=== PATIENT | male | born 1960 | race Caucasian/White ===

== ENCOUNTER → 2018-04-20 18:46 | Outpatient (CLI) | payer OTHER, SELFPAY ==
--- NOTE | 2018-04-20 18:49 | DI.MRI.S_ITS ---
PROCEDURE: MR KNEE RT WO CON INDICATIONS: RIGHT KNEE PAIN TECHNIQUE: Noncontrast sagittal PD fast spin echo and T2 fast spin echo with fat saturation, sagittal 3-D FLASH with fat saturation; coronal T1 spin echo and PD fast spin echo with fat saturation, and axial PD fast spin echo with fat saturation through the knee. COMPARISON: None. FINDINGS: Image quality: Excellent. Menisci: The medial and lateral menisci demonstrate normal morphology and internal signal. The meniscal root ligaments appear intact. Cruciate ligaments: The anterior and posterior cruciate ligaments appear intact. Medial structures: The medial collateral ligament appears intact. The posterior oblique ligament, semimembranosus tendon insertions, oblique popliteal ligament, and meniscocapsular junction appear intact. Visualized portions of the pes anserinus tendons appear normal. No abnormal bursal fluid. Lateral structures: The lateral collateral ligament, long and short heads of the biceps femoris tendon appear intact. The popliteus tendon appears normal; the popliteofibular ligament appears intact. The posterosuperior and anteroinferior popliteomeniscal fascicles appear intact. The arcuate and fabellofibular ligaments appear intact, on either side of the lateral inferior geniculate artery. Iliotibial band appears normal. Anterior structures: The quadriceps and patellar tendons appear intact. Patellar alignment is normal. No femoral trochlear dysplasia or ventral trochlear prominence. No edema in the infrapatellar fat pad. Bones and cartilage: No bone marrow contusions or fractures. The cartilage of the medial and lateral femorotibial compartments, as well as the patellofemoral compartment, appears reduced in thickness, mild in severity at the lateral compartment and medial compartment and moderately severe at the lateral facet of the patellofemoral joint. Joint space: There is a mild excess of knee joint fluid. No Schafer's cyst. Normal appearing synovial plicae are incidentally noted. IMPRESSION: Moderately severe degenerative osteoarthritic change at the lateral facet of the patellofemoral joint, with associated mild knee joint effusion. No intra-articular loose body is seen. No traumatic injury is found. Mild degenerative osteoarthritis at both the medial and lateral compartments of the knee. Dictated by: Andrew Cardona M.D. on 04/21/2018 at 13:50 Approved by: Andrew Cardona M.D. on 04/21/2018 at 13:53
== END ==
PROVIDERS: Family Provider Internal Medicine; PCP Internal Medicine; Visit Provider Physician Assistant
DX: M25.561 Pain in right knee (principal); M17.11 Unilateral primary osteoarthritis, right knee
CPT/HCPCS: 73721

== ENCOUNTER → 2018-11-12 13:46 | Outpatient (CLI) | payer OTHER, SELFPAY | PROVIDERS: Family Provider Internal Medicine; PCP Internal Medicine; Visit Provider Internal Medicine | DX: Z00.00 Encounter for general adult medical examination without abnormal findings (principal) ==

== ENCOUNTER → 2018-11-13 07:35 | Outpatient (CLI) | payer OTHER, SELFPAY ==
[2018-11-13 09:06] LABS: Cholesterol 240 mg/dL (140-199); Glucose 95 mg/dL (80-110); HDL Cholesterol 55 mg/dL (40-60); LDL Cholesterol Calculated 157 mg/dL (<100); Triglycerides 138 mg/dL (35-150)
== END ==
PROVIDERS: Family Provider Internal Medicine; PCP Internal Medicine; Visit Provider Internal Medicine
DX: Z00.00 Encounter for general adult medical examination without abnormal findings (principal)
CPT/HCPCS: 36415; 80061; 82947; 84153

== ENCOUNTER → 2021-03-22 14:48 | Outpatient (ROUT) | payer OTHER, SELFPAY ==
[2021-03-22 17:12] LABS: Aspartate Aminotransferase 51 IU/L (17-59); BUN Creatinine Ratio 15.7 (6-22); Blood Urea Nitrogen 13 mg/dL (9-20); Calcium 9.9 mg/dL (8.4-10.2); Carbon Dioxide 25 mmol/L (22-32); Chloride 104 mmol/L (98-107); Cholesterol 236 mg/dL (140-199); Estimated Glomerular Filt Rate > 60.0 mL/min (>60); Glucose 102 mg/dL (80-110); HDL Cholesterol 68 mg/dL (40-60); HEMOLYSIS 20 (0-50); LDL Cholesterol Calculated 149 mg/dL (<100); Potassium 4.6 mmol/L (3.4-5.1); Sodium 139 mmol/L (137-145); Triglycerides 93 mg/dL (35-150)
[2021-03-22 18:04] LABS: Prostate Specific Antigen 1.93 ng/mL (0.10-4.00)
== END ==
PROVIDERS: Family Provider Internal Medicine; PCP Internal Medicine; Visit Provider Internal Medicine
DX: E78.2 Mixed hyperlipidemia (principal); Z00.00 Encounter for general adult medical examination without abnormal findings
CPT/HCPCS: 80048; 80061; 84153; 84450

== ENCOUNTER → 2021-03-26 09:39 | Outpatient (CLI) | payer OTHER, SELFPAY ==
[2021-03-26 11:14] LABS: COVID19 -Nasal RAPID Negative (Negative)
== END ==
PROVIDERS: PCP Internal Medicine; Visit Provider Student in an Organized Health Care Education/Training Program
DX: Z01.812 Encounter for preprocedural laboratory examination (principal); Z20.822 Contact with and (suspected) exposure to COVID-19
CPT/HCPCS: 87635

== ENCOUNTER 2021-03-28 07:33 | Day surgery (SDC) | payer OTHER, SELFPAY ==
--- NOTE | 2021-03-28 | PATH_ITS ---
[facility] Accession Number: [id number] . 01 Material submitted: . PART A: stomach - STOMACH BIOPSY PART B: duodenum - DUODENAL POLYP PART C: colon - TRANSVERSE COLON POLYP PART D: colon - DESCENDING COLON POLYP PART E: rectum - RECTAL POLYP . 01 Clinical history: . A: STOMACH BIOPSY (RULE OUT MALT) . 02 Diagnosis: A. Stomach, Biopsies: Chronic gastritis with pseudopyloric metaplasia, parietal cell atrophy and prominent lamina propria infiltrate comprised of lymphocytes, plasma cells and eosinophils. Please see comment. Negative for epithelial dysplasia. . B. Duodenum, Polyp, Biopsy: Duodenal mucosa with no diagnostic abnormality. Negative for active inflammation, features of sprue, dysplasia, or malignancy. . C. Transverse Colon, Polyp, Biopsy: Tubular adenoma. . D. Descending Colon, Polyp, Biopsy: Hyperplastic polyp. . E. Rectum, Polyp, Biopsy: Hyperplastic polyp. [facility] 04/04/2021 1530 Local . 02 Comment: A. Multiple stomach biopsies show gastric mucosa with expansion of the lamina propria by an apparent mixed infiltrate of lymphocytes, plasma cells and eosinophils. There is pseudopyloric metaplasia and parietal cell atrophy. No intestinal metaplasia is identified and the immunohistochemical stain for Helicobacter is negative. Scattered glandular elements contain intraepithelial lymphocytes, suggestive of lymphoepithelial lesions. 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 The clinical concern for lymphoma is noted. This case will be forwarded to our hepatopathologist for consultation and their results reported as an addendum. . 02 Electronically signed: . Hannah Urbina MD, Pathologist NPI- [id number] . 01 Gross description: . A. Specimen A is received in formalin labeled stomach and consists of multiple soto-pink fragments of soft tissue, measuring 1.0 x 1.0 x 0.2 cm in aggregate. The specimen is entirely submitted in cassette A1. B. Specimen B is received in formalin labeled duodenal polyp and consists of two soto-pink fragments of soft tissue, measuring 0.5 x 0.4 x 0.2 cm in aggregate. The specimen is entirely submitted in cassette B1. C. Specimen C is received in formalin labeled transverse colon polyp and consists of a 0.8 x 0.4 x 0.2 cm soto fragment of soft tissue, which is entirely submitted in cassette C1. D. Specimen D is received in formalin labeled descending colon polyp and consists of a 0.3 x 0.3 x 0.2 cm soto-pink fragment of soft tissue, which is entirely submitted in cassette D1. E. Specimen E is received in formalin labeled rectal polyp and consists of a 0.3 x 0.2 x 0.2 cm soto-pink fragment of soft tissue, which is entirely submitted in cassette E1. ([id number]) /[facility] 03/29/2021 1617 Local . 02 Microscopic: . A. An immunohistochemical stain was performed to evaluate for Helicobacter organisms and is negative. An alcian blue stain was performed to evaluate for intestinal metaplasia and is negative. The control stains showed appropriate reactivity. . * This test was developed and its performance characteristics determined by [employer]. It has not been cleared or approved by the U.S. Food and Drug Administration. The FDA has determined that such clearance or approval is not necessary. This test is used for clinical purposes. It should not be regarded as investigational or for research. . 02 Pathologist provided ICD-10: Z12.11, D12.3, K63.5 . 02 CPT . 237389, 779745, 050595, 766828, 867201, 625385, M71056 Performed at: 01 [facility] [address], [place], [place] [id number] MD Prosper Bowman MD Phone: [phone] Performed at: 02 [facility] [id number] [place], [place] [id number] MD Hannah Urbina MD Phone: [phone]
[2021-03-28 07:55] VITALS: BP 172/87; PULSE 59; RESP 14; TEMP 36.8; O2SAT 100; BMI 38.1
--- NOTE | 2021-03-28 08:38 | PM.HP.1 ---
History of Present Illness History of Present Illness Date Patient Seen: 03/28/21 Chief complaint: IAC Patient History Medical History (Updated 03/22/20 @ 13:02 by Yordy Rendon MD) Asthma Depression GERD (gastroesophageal reflux disease) Morbid obesity with body mass index of 40.0-49.9 Obstructive sleep apnea of adult (~2011) Osteoarthritis Seasonal allergies Snoring Family & Social History Social History: household members spouse lives independently Yes caregiver/support person No Tobacco & Substance use: Smoking Status Never smoker alcohol intake current alcohol intake frequency 0-2 drinks per day Substance Use Type does not use Meds Home Medications and Allergies Home Medications Medication Instructions Recorded Confirmed Type Respironics Remstar CPAP #1 ea 03/25/19 03/25/19 History albuterol sulfate 2 puff INHALATION Q4H PRN 03/28/21 03/28/21 History esomeprazole magnesium 20 mg PO DAILY PRN 03/28/21 03/28/21 History montelukast 10 mg PO DAILY 03/28/21 03/28/21 History sertraline 50 mg PO DAILY 03/28/21 03/28/21 History Allergies Allergy/AdvReac Type Severity Reaction Status Date / Time No Known Drug Allergies Allergy Verified 03/28/21 07:52 Exam Vital Signs (past 8 hours): - 03/28/21 07:55 Temperature 98.3 F Pulse Rate 59 L Respiratory Rate 14 Blood Pressure 172/87 H Pulse Oximetry 100 Oxygen Delivery Method Room Air Assessment & Plan Assessment & Plan narrative: Colorectal cancer screening need for colonoscopy. In addition need follow-up EGD to rule out Purdy's esophagus. Risks, benefits, alternatives have been explained.
--- NOTE | 2021-03-28 08:40 | PM.OP.ENDO ---
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 The video colonoscope was introduced the rectum slowly advanced to the cecum. Preparation was good. On slow withdrawal mucosa was carefully examined. The scope was removed. The patient tolerated procedure well. The patient was then turned in the upper scope substituted. This was introduced into the oropharynx and with the patient's help swallowed into the esophagus. The esophagus stomach and duodenum were carefully examined. On withdrawal retroflexed view the GE junction was performed. The scope was removed. The patient tolerated procedure well. Blood loss none Complications none Sedation Total sedation time 31 minutes Versed 11 mg fentanyl 100 micro g IV titration Findings EGD 1. Normal esophagus with absolutely no salmon-colored tissue above the level of the gastric folds. 2. Whitish mottled change in the lining on the greater curvature of the stomach involving most of the greater curvature. This was easily 20 x 15 cm. Multiple biopsies taken to rule out an MALT 3. Normal duodenal bulb and sweep with the exception of a 15 mm soft polyp that had somewhat of a pillow up effective when biopsying. Colonoscopy 1. 5 mm polyp in the transverse colon Jumbo biopsy removed completely 2. 4 mm polyp in the descending colon Jumbo biopsy removed completely 3. 3 mm polyp in the rectum Jumbo biopsied and removed completely 4. Scattered rare diverticular disease in the sigmoid colon Otherwise negative colonoscopy to cecum Will follow-up on the biopsy results particularly from his colon. If these are all tubular adenomas he will need follow-up colonoscopy in 5 years.
[2021-03-28] MEDS: MIDAZOLAM 5 MG/5 ML VIAL IV ×3 (08:44→09:11)
[2021-03-28] MEDS: fentaNYL 250 MCG/5 ML INJ IV (08:45)
[2021-03-28 09:22] VITALS: BP 140/75; PULSE 57; RESP 12; TEMP 36.7; O2SAT 98
[2021-03-28 09:26] VITALS: BP 145/88; PULSE 63; RESP 16; O2SAT 95
[2021-03-28 09:32] VITALS: BP 145/81; PULSE 61; RESP 12; O2SAT 96
[2021-03-28 09:35] VITALS: BP 142/85; PULSE 62; RESP 14; TEMP 36.7; O2SAT 96
[2021-03-28 09:42] VITALS: BP 147/79; PULSE 58; RESP 16; O2SAT 97
== END 2021-03-28 09:50 | disposition home or self-care (01) ==
PROVIDERS: PCP Internal Medicine; Referring Provider Internal Medicine Gastroenterology; Visit Provider Internal Medicine Gastroenterology
PROC: 0DJ08ZZ Inspection of Upper Intestinal Tract, Via Natural or Artificial Opening Endoscopic (ICD-10-PCS; CPT 43235; principal; 2021-03-28 08:30)
PROC: 0DJD8ZZ Inspection of Lower Intestinal Tract, Via Natural or Artificial Opening Endoscopic (ICD-10-PCS; CPT 45378; 2021-03-28 08:30)
DX: Z12.11 Encounter for screening for malignant neoplasm of colon (principal); Z87.19 Personal history of other diseases of the digestive system; G47.33 Obstructive sleep apnea (adult) (pediatric); E66.01 Morbid (severe) obesity due to excess calories; F32.9 Major depressive disorder, single episode, unspecified; J45.909 Unspecified asthma, uncomplicated; K57.30 Diverticulosis of large intestine without perforation or abscess without bleeding; D12.3 Benign neoplasm of transverse colon; K62.1 Rectal polyp; K29.60 Other gastritis without bleeding
CPT/HCPCS: 45380; 43239; J2250; J3010

== ENCOUNTER → 2021-05-24 16:00 | Outpatient (CLI) | payer OTHER, SELFPAY ==
[2021-05-26 16:54] LABS: H. Pylori Antigen Stool Negative (Negative)
== END ==
PROVIDERS: PCP Internal Medicine; Referring Provider Internal Medicine Gastroenterology; Visit Provider Internal Medicine Gastroenterology
DX: C88.4 Extranodal marginal zone B-cell lymphoma of mucosa-associated lymphoid tissue [MALT-lymphoma] (principal)
CPT/HCPCS: 87338

== ENCOUNTER → 2021-06-25 09:28 | Outpatient (CLI) | payer OTHER, SELFPAY ==
[2021-06-25 10:06] LABS: COVID19 -Nasal RAPID Negative (Negative)
[2021-06-25 10:12] VITALS: BMI 40.2
--- NOTE | 2021-06-25 10:23 | SUR.PREOP ---
Reviewed pre-op questions in secluded space in waiting room while awaiting covid results.
[2021-06-25 10:35] VITALS: BP 167/82; PULSE 56; RESP 16; TEMP 36.8; O2SAT 97
[2021-06-25 12:15] VITALS: BP 136/77; PULSE 16; RESP 53; TEMP 36.6; O2SAT 99
--- NOTE | 2021-06-25 12:52 | SUR.PHASEII ---
1232 late entry Very pleasant patient, tolerated procedure well, denies pain/nausea. Fluids given upon arrival to OPD. Dressing CDI. Stable.
[2021-06-25 14:42] LABS: Add Manual Diff / Slide Review NO; Basophils Absolute Auto 100 /uL (0-100); Basophils Percent Auto 1.1 % (0-2); Eosinophils Absolute Auto 400 /uL (0-450); Eosinophils Percent Auto 5.3 % (2-4); Hematocrit 44.6 % (41-53); Hemoglobin 14.9 g/dL (13.5-17.5); Lymphocytes Absolute Auto 2400 /uL (1100-4500); Mean Corpuscular HGB Conc 33.4 % (30-36); Mean Corpuscular Hemoglobin 30.4 PG (26-34); Monocytes Absolute Auto 600 /uL (0-900); Monocytes Percent Auto 7.2 % (3-14); Neutrophils Absolute Auto 4700 /uL (1500-7000); Neutrophils Percent Auto 57.4 % (50-75); Platelet Count 249 X10^3/uL (150-400); Red Blood Cell Count 4.89 X10^6/uL (4.5-5.9); Red Cell Distribution Width 13.7 % (11.6-14.8); White Blood Cell Count 8.2 X10^3/uL (4.5-11.0)
== END ==
LOC: OR 12:19 → LAB 10-24 11:18
PROVIDERS: Anesthesiology; PCP Internal Medicine; Referring Provider Internal Medicine Hematology & Oncology; Visit Provider Internal Medicine Hematology & Oncology
DX: C88.4 Extranodal marginal zone B-cell lymphoma of mucosa-associated lymphoid tissue [MALT-lymphoma] (principal); Z20.822 Contact with and (suspected) exposure to COVID-19
CPT/HCPCS: 38222; 85025; 87635; 99000; J2250; J3010

== ENCOUNTER → 2021-08-24 14:44 | Outpatient (CLI) | payer OTHER, SELFPAY ==
--- NOTE | 2021-08-24 | DI.RAD.S_ITS ---
PROCEDURE: XR HIP W PEL IF DONE RT 2V INDICATIONS: Right Hip Pain TECHNIQUE: AP pelvis with lateral view(s) of the right hip(s). COMPARISON: [facility], , HIP 2V LEFT, 11/12/2010, 12:08. FINDINGS: Bones: No fractures or dislocations. Degenerative changes of the right hip with mild to moderate joint space loss and osteophytosis. Mild sclerosis of the opposing articular surfaces. Pelvic ring appears intact. A left hip arthroplasty is seen, partially imaged. No suspicious bony lesions. Soft tissues: The visualized bowel gas pattern is normal. No suspicious soft tissue calcifications. IMPRESSION: No acute osseous abnormality. Dictated by: Jasper Oh M.D. on 08/24/2021 at 16:17 Approved by: Jasper Oh M.D. on 08/24/2021 at 16:19
== END ==
PROVIDERS: PCP Internal Medicine; Referring Provider Internal Medicine; Visit Provider Internal Medicine
DX: M16.11 Unilateral primary osteoarthritis, right hip (principal)
CPT/HCPCS: 73502

== ENCOUNTER → 2021-12-06 16:28 | Outpatient (CLI) | payer OTHER, SELFPAY ==
--- NOTE | 2021-12-06 16:30 | DI.RAD.S_ITS ---
PROCEDURE: XR KNEE LT 3V INDICATIONS: bilateral knee and shoulder pain TECHNIQUE: 3 views of the knee were acquired. COMPARISON: None. FINDINGS: Bones: No fractures or dislocations. Ogoa-hf-aoybdhuw tricompartmental osteoarthritis. No suspicious bony lesions. Soft tissues: No joint effusion. No suspicious soft tissue calcifications. IMPRESSION: Ixwa-hb-ukxjbipz osteoarthritis. Dictated by: Ale Santa M.D. on 12/07/2021 at 9:22 Approved by: Ale Santa M.D. on 12/07/2021 at 9:26
--- NOTE | 2021-12-06 16:30 | DI.RAD.S_ITS ---
PROCEDURE: XR SHOULDER RT MIN 2V INDICATIONS: bilateral knee and shoulder pain TECHNIQUE: 3 views of the shoulder were acquired. COMPARISON: None. FINDINGS: Bones: No fractures or dislocations. No suspicious bony lesions. Severe acromioclavicular and moderate glenohumeral joint degeneration. Visualized ribs appear intact. Soft tissues: No suspicious soft tissue calcifications. IMPRESSION: Severe degenerative joint disease. Dictated by: Ale Santa M.D. on 12/07/2021 at 9:21 Approved by: Ale Santa M.D. on 12/07/2021 at 9:22
--- NOTE | 2021-12-06 16:30 | DI.RAD.S_ITS ---
PROCEDURE: XR SHOULDER LT MIN 2V INDICATIONS: bilateral knee and shoulder pain TECHNIQUE: 3 views of the shoulder were acquired. COMPARISON: None. FINDINGS: Bones: Moderate to severe acromioclavicular degenerative change. Mild to moderate glenohumeral degenerative changes. No fractures or dislocations. No suspicious bony lesions. Visualized ribs appear intact. Soft tissues: No suspicious soft tissue calcifications. IMPRESSION: Glenohumeral and acromioclavicular arthritis. Dictated by: Bridger Gill M.D. on 12/07/2021 at 8:29 Approved by: Bridger Gill M.D. on 12/07/2021 at 8:29
--- NOTE | 2021-12-06 16:30 | DI.RAD.S_ITS ---
PROCEDURE: XR KNEE RT 3V INDICATIONS: bilateral knee and shoulder pain TECHNIQUE: 3 views of the knee were acquired. COMPARISON: [facility], MR, MR KNEE RT WO CON, 04/20/2018, 18:52. [facility], CR, XR KNEE LT 3V, 12/06/2021, 17:47. FINDINGS: Bones: No fractures or dislocations. Seuvzqth-lh-cycnoa tricompartmental knee joint degeneration, most pronounced in the patellofemoral joint. There is mild lateral subluxation of patella. No suspicious bony lesions. Soft tissues: Trace joint effusion. No suspicious soft tissue calcifications. IMPRESSION: Moderate to severe osteoarthritis. Dictated by: Ale Santa M.D. on 12/07/2021 at 9:27 Approved by: Ale Santa M.D. on 12/07/2021 at 9:30
== END ==
PROVIDERS: PCP Family Medicine; Referring Provider Family Medicine; Visit Provider Family Medicine
DX: M19.011 Primary osteoarthritis, right shoulder (principal); M19.012 Primary osteoarthritis, left shoulder; M17.0 Bilateral primary osteoarthritis of knee; M25.511 Pain in right shoulder; M25.512 Pain in left shoulder; M25.561 Pain in right knee; M25.562 Pain in left knee
CPT/HCPCS: 73030; 73562

== ENCOUNTER → 2021-12-31 15:20 | Outpatient (CLI) | payer OTHER, SELFPAY ==
[2021-12-31 17:34] LABS: COVID19 -Nasal RAPID Negative (Negative)
== END ==
PROVIDERS: PCP Family Medicine; Visit Provider Family Medicine Sleep Medicine
DX: Z20.822 Contact with and (suspected) exposure to COVID-19 (principal)
CPT/HCPCS: 87635; C9803

== ENCOUNTER 2022-01-02 11:00 | Day surgery (SDC) | payer OTHER, SELFPAY ==
--- NOTE | 2022-01-02 | PATH_ITS ---
[facility] Accession Number: [id number] . 01 Material submitted: . PART A: stomach - ANTRUM PART B: stomach - BODY #1 PART C: stomach - BODY #2 PART D: stomach - FUNDUS . 01 Clinical history: . A-C: RULE OUT MALT VS GASTRITIS . 02 Diagnosis: A. Antrum, Biopsy: Gastric antral mucosa with mild chronic inflammation. No Helicobacter organisms identified on immunohistochemical stain. Negative for intestinal metaplasia on AB/PAS stain. Negative for dysplasia or malignancy. No histomorphologic evidence of involvement by lymphoma; please see comment. . B. Stomach, Body, #1, Biopsy: Gastric body mucosa with chronic active inflammation. Rare forms suggestive of Helicobacter pylori highlighted by immunohistochemistry; please see comment. Negative for intestinal metaplasia. Negative for dysplasia or malignancy. No histomorphologic evidence of involvement by lymphoma. . C. Stomach, Body, #2, Biopsy: Gastric antral and body mucosa with mild chronic and active inflammation. No Helicobacter organisms identified on immunohistochemical stain. Negative for intestinal metaplasia. Negative for dysplasia or malignancy. No histomorphologic evidence of involvement by lymphoma. . D. Fundus, Biopsy: Gastric antral and body mucosa with mild chronic and active inflammation. No Helicobacter organisms identified on immunohistochemical stain. Negative for intestinal metaplasia. Negative for dysplasia or malignancy. No histomorphologic evidence of involvement by lymphoma. [facility] 01/08/2022 [facility] Local . 02 Comment: Overall, sections show gastric mucosa with expansion of the lamina propria by a mixed inflammatory infiltrate, including plasma cells, lymphocytes and scattered neutrophils. There is no significant lymphocytic atypia, and no lymphoepithelial lesions are seen. Thus, the features are not suggestive of involvement by the patient's known history of MALT lymphoma. That said, if evaluation for minimal residual disease is warranted, follow up with molecular studies may be indicated. Additionally, Helicobacter pylori immunohistochemical stains are performed on each part. Rare forms suggestive of Helicobacter pylori organisms are seen only in the body #1 biopsy (part B). Given these features, evaluation for Helicobacter pylori with laboratory studies (serologies or Helicobacter pylori stool antigen) could be considered to exclude the possibility of Helicobacter pylori gastritis. . As part of routine water quality control engineer, Dr. Hernandez, hematopathologist, has reviewed this case and agrees there is no histomorphologic evidence of involvement by lymphoma. Additionally, Dr. Urbina has reviewed the immunohistochemical stains in this case and agrees that rare forms suggestive of Helicobacter pylori are seen in the gastric body biopsy. . . 02 Electronically signed: . Fransisco Ruvalcaba MD, PhD, Pathologist NPI- [id number] . 01 Gross description: . Part A: ANTRUM: Received in formalin are 4 fragment(s) of soto, soft tissue measuring 0.4 x 0.1 x 0.1 cm to 0.2 x 0.1 x 0.1 cm submitted entirely in 1 cassette(s) Part B: BODY #1: Received in formalin are 4 fragment(s) of soto, soft tissue measuring 0.4 x 0.1 x 0.1 cm to 0.2 x 0.1 x 0.1 cm submitted entirely in 1 cassette(s) Part C: BODY #2: Received in formalin are 4 fragment(s) of soto, soft tissue measuring 0.3 x 0.2 x 0.1 cm to 0.1 x 0.1 x 0.1 cm submitted entirely in 1 cassette(s) Part D: FUNDUS: Received in formalin are 2 fragment(s) of soto, soft tissue measuring 0.4 x 0.2 x 0.1 cm to 0.2 x 0.1 x 0.1 cm submitted entirely in 1 cassette(s) /[facility] 01/03/2022 1433 Local . 02 Microscopic: . A. An immunohistochemical stain is performed to evaluate for Helicobacter organism, and no organisms are identified. An AB/PAS stain is performed to evaluate for specialized intestinal metaplasia, and is negative for goblet cells. The control stains show appropriate reactivity. . B. An immunohistochemical stain is performed to evaluate for Helicobacter organisms, and highlights rare forms suggestive of Helicobacter pylori. A control stain shows appropriate reactivity. . C. An immunohistochemical stain is performed to evaluate for Helicobacter organism, and no organisms are identified. A control stain shows appropriate reactivity. . D. An immunohistochemical stain is performed to evaluate for Helicobacter organism, and no organisms are identified. A control stain shows appropriate reactivity. . * This test was developed and its performance characteristics determined by [employer]. It has not been cleared or approved by the U.S. Food and Drug Administration. The FDA has determined that such clearance or approval is not necessary. This test is used for clinical purposes. It should not be regarded as investigational or for research. . 02 Pathologist provided ICD-10: K29.70, Z85.72 . 02 CPT . 781670, 308127, 718283, 658470, D87929, 668177 Specimen Comment: A courtesy copy of this report has been sent to [phone] Performed at: 01 [facility] [address] [address], [place], [place] [id number] MD Prosper Bowman MD Phone: [phone] Performed at: 02 [facility] [address] [place], [place] [id number] MD Hannah Urbina MD Phone: [phone]
[2022-01-02 11:22] VITALS: BP 155/83; PULSE 57; RESP 16; O2SAT 100; BMI 40.2
--- NOTE | 2022-01-02 12:21 | PM.PREOP ---
Pre-operative Note COVID-19 COVID-19 status: Negative Interval Note History & Physical reviewed/Exam performed by Physician: Yes Changes to H&P: No ASA Class (for procedural sedation): II
--- NOTE | 2022-01-02 12:22 | PM.OP.EGD ---
Operative Date/Time/Diagnoses Date of procedure: 01/02/22 Pre-op diagnosis: See indication and findings Procedure & Clinicians Study performed: EGD Indications: History of MALT lymphoma status post treatment. Follow up to check for extent of disease Surgeon: Wilfredo Anguiano Procedure Notes Procedure in detail: After informed consent was obtained the patient was placed in left lateral decubitus position. The video upper scope was placed into the oropharynx and with the patient's help swelled into the esophagus. The esophagus stomach and duodenum were carefully examined. On withdrawal retroflexed view the GE junction was performed. The scope was removed. The patient of the procedure well. Blood loss none Complications none Sedation mac Findings 1. Completely normal esophagus with no evidence for Purdy's 2. Extensive abnormality in the stomach. The pre-pyloric and antral areas appeared atrophic with evidence of low level neovascularization white mucosa appearance but with some red dots. Likewise, after a bridge of normal appearing mucosa the greater curvature anterior wall appeared the same way as the antrum reaching all the way up into the fundus. This took over at least 40-50% of the circumference of the upper stomach at its entire length. The biopsies were taken in the antrum, body 1. Which corresponded to fairly normal appearing mucosa, body 2. Which corresponded to abnormal mucosa as seen in the antrum and, fundus which corresponded to the upper and of the abnormal mucosa. 3. Normal duodenal bulb and sweep Will be in touch with the Mr. Mak regarding his biopsies and may need to discuss with his canvas baster jumpbasting.
[2022-01-02 13:26] VITALS: BP 123/65; PULSE 51; RESP 16; TEMP 36.5; O2SAT 99
[2022-01-02 13:32] VITALS: BP 120/73; PULSE 51; RESP 15; O2SAT 99
[2022-01-02 13:37] VITALS: BP 154/83; PULSE 53; RESP 15; O2SAT 100
[2022-01-02 13:40] VITALS: BP 155/77; PULSE 50; RESP 15; O2SAT 100
--- NOTE | 2022-01-02 13:47 | SUR.PHASEII ---
Discharge instructins reviewed with pt and he verbalized understanding. Tolerating water and ice chips with no c/o nausea noted.
== END 2022-01-02 13:52 | disposition home or self-care (01) ==
PROVIDERS: PCP Family Medicine; Referring Provider Internal Medicine Gastroenterology; Visit Provider Internal Medicine Gastroenterology
PROC: 0DJ08ZZ Inspection of Upper Intestinal Tract, Via Natural or Artificial Opening Endoscopic (ICD-10-PCS; CPT 43235; principal; 2022-01-02 13:00)
DX: K29.50 Unspecified chronic gastritis without bleeding (principal); Z85.72 Personal history of non-Hodgkin lymphomas; K21.9 Gastro-esophageal reflux disease without esophagitis; J45.909 Unspecified asthma, uncomplicated
CPT/HCPCS: 43239; J2704

== ENCOUNTER → 2022-01-07 07:34 | Outpatient (CLI) | payer OTHER, SELFPAY ==
[2022-01-07 08:56] LABS: Add Manual Diff / Slide Review NO; Basophils Absolute Auto 0 /uL (0-100); Basophils Percent Auto 0.9 % (0-2); Eosinophils Absolute Auto 300 /uL (0-450); Eosinophils Percent Auto 5.7 % (2-4); Hematocrit 43.4 % (41-53); Hemoglobin 14.5 g/dL (13.5-17.5); Lymphocytes Absolute Auto 600 /uL (1100-4500); Lymphocytes Percent Auto 10.4 % (25-40); Mean Corpuscular HGB Conc 33.5 % (30-36); Mean Corpuscular Hemoglobin 30.7 PG (26-34); Mean Corpuscular Volume 91.7 fL (80-100); Monocytes Absolute Auto 600 /uL (0-900); Monocytes Percent Auto 10.8 % (3-14); Neutrophils Absolute Auto 4000 /uL (1500-7000); Neutrophils Percent Auto 72.2 % (50-75); Platelet Count 228 X10^3/uL (150-400); Red Blood Cell Count 4.73 X10^6/uL (4.5-5.9); Red Cell Distribution Width 13.7 % (11.6-14.8); White Blood Cell Count 5.6 X10^3/uL (4.5-11.0)
[2022-01-07 13:58] LABS: BUN Creatinine Ratio 9.6 (6-22); Blood Urea Nitrogen 8 mg/dL (9-20); Calcium 9.5 mg/dL (8.4-10.2); Carbon Dioxide 27 mmol/L (22-32); Chloride 104 mmol/L (98-107); Estimated Glomerular Filt Rate > 60.0 mL/min (>60); Glucose 102 mg/dL (80-110); HEMOLYSIS < 15 (0-50); Potassium 4.3 mmol/L (3.4-5.1); Sodium 139 mmol/L (137-145)
[2022-01-08 05:47] LABS: Haptoglobin 190 mg/dL (32-363)
== END ==
PROVIDERS: Internal Medicine Gastroenterology; PCP Family Medicine; Referring Provider Orthopaedic Surgery; Visit Provider Orthopaedic Surgery
DX: C88.4 Extranodal marginal zone B-cell lymphoma of mucosa-associated lymphoid tissue [MALT-lymphoma] (principal); Z01.818 Encounter for other preprocedural examination; Z01.30 Encounter for examination of blood pressure without abnormal findings
CPT/HCPCS: 36415; 80048; 83010; 85025

== ENCOUNTER → 2022-01-22 13:48 | Outpatient (CLI) | payer OTHER, SELFPAY | PROVIDERS: PCP Family Medicine; Visit Provider Family Medicine | DX: Z01.818 Encounter for other preprocedural examination (principal) | CPT/HCPCS: 87797 ==

== ENCOUNTER → 2022-06-20 13:13 | Outpatient (CLI) | payer OTHER, SELFPAY ==
[2022-06-24 16:47] LABS: H. Pylori Antigen Stool Negative (Negative)
== END ==
PROVIDERS: PCP Family Medicine; Referring Provider Internal Medicine; Visit Provider Internal Medicine
DX: C88.4 Extranodal marginal zone B-cell lymphoma of mucosa-associated lymphoid tissue [MALT-lymphoma] (principal)
CPT/HCPCS: 87338

== ENCOUNTER → 2022-06-28 06:54 | Outpatient (CLI) | payer OTHER, SELFPAY ==
[2022-06-28 07:47] LABS: Add Manual Diff / Slide Review NO; Basophils Absolute Auto 0 /uL (0-100); Basophils Percent Auto 0.8 % (0-2); Eosinophils Absolute Auto 300 /uL (0-450); Eosinophils Percent Auto 5.1 % (2-4); Hematocrit 43.6 % (41-53); Hemoglobin 14.7 g/dL (13.5-17.5); Lymphocytes Absolute Auto 1000 /uL (1100-4500); Lymphocytes Percent Auto 18.8 % (25-40); Mean Corpuscular HGB Conc 33.6 % (30-36); Mean Corpuscular Hemoglobin 29.9 PG (26-34); Mean Corpuscular Volume 89.1 fL (80-100); Monocytes Absolute Auto 600 /uL (0-900); Monocytes Percent Auto 10.2 % (3-14); Neutrophils Absolute Auto 3500 /uL (1500-7000); Neutrophils Percent Auto 65.1 % (50-75); Platelet Count 207 X10^3/uL (150-400); Red Cell Distribution Width 14.5 % (11.6-14.8); White Blood Cell Count 5.5 X10^3/uL (4.5-11.0)
[2022-06-28 07:49] LABS: Alanine Aminotransferase 35 IU/L (<50); Albumin 4.5 g/dL (3.5-5.0); Albumin Globulin Ratio 1.6 (1.0-2.8); Alkaline Phosphatase 79 U/L (38-126); Aspartate Aminotransferase 43 IU/L (17-59); BUN Creatinine Ratio 17.2 (6-22); Bilirubin Total 0.6 mg/dL (0.2-1.3); Blood Urea Nitrogen 16 mg/dL (9-20); Calcium 9.4 mg/dL (8.4-10.2); Carbon Dioxide 26 mmol/L (22-32); Chloride 104 mmol/L (98-107); Estimated Glomerular Filt Rate > 60 mL/min (>60); Globulin 2.8 g/dL (1.7-4.1); Glucose 109 mg/dL (80-110); HEMOLYSIS < 15 (0-50); Potassium 4.2 mmol/L (3.4-5.1); Sodium 138 mmol/L (137-145); Total Protein 7.3 g/dL (6.3-8.2)
[2022-06-28 08:35] LABS: Cholesterol 161 mg/dL (140-199); HDL Cholesterol 61 mg/dL (40-60); LDL Cholesterol Calculated 71 mg/dL (<100); Triglycerides 144 mg/dL (35-150)
[2022-06-28 08:46] LABS: Hemoglobin A1C% w Est Avg Glu 5.8 % (4.0-6.0)
[2022-06-28 09:00] LABS: Vitamin D 25 Hydroxy (D3) 29.3 ng/mL (30.0-100.0)
[2022-06-28 09:04] LABS: TSH w/ Reflex to FT4 1.64 uIU/mL (0.47-4.68)
[2022-06-28 09:23] LABS: Vitamin B12 633 pg/mL (239-931)
== END ==
PROVIDERS: PCP Family Medicine; Referring Provider Internal Medicine Hematology & Oncology; Visit Provider Internal Medicine Hematology & Oncology
DX: C16.9 Malignant neoplasm of stomach, unspecified (principal); C26.9 Malignant neoplasm of ill-defined sites within the digestive system; E66.01 Morbid (severe) obesity due to excess calories; E78.5 Hyperlipidemia, unspecified; G89.29 Other chronic pain; M16.11 Unilateral primary osteoarthritis, right hip; M25.511 Pain in right shoulder; M25.512 Pain in left shoulder; M25.561 Pain in right knee; M25.562 Pain in left knee; M54.9 Dorsalgia, unspecified; C88.4 Extranodal marginal zone B-cell lymphoma of mucosa-associated lymphoid tissue [MALT-lymphoma]
CPT/HCPCS: 36415; 80053; 80061; 82306; 82607; 83036; 84443; 85025

== ENCOUNTER 2023-02-05 12:59 | Day surgery (SDC) | payer OTHER, SELFPAY ==
--- NOTE | 2023-02-05 | PATH_ITS ---
[facility] Accession Number: [id number] No. of containers..04 Tissue . 01 Material submitted: . PART A: gastrointestinal site - PRE PYLORIC BIOPSY PART B: stomach - ANTRUM BIOPSIES PART C: stomach - ANTRUM SCAR AND NODULE PART D: gastrointestinal site - GASTRIC BODY AND BIOPSIES . 01 Diagnosis: A. Stomach, Prepyloric, Biopsy: Gastric antral mucosa with reactive gastropathy and mild chronic inflammation. No Helicobacter organisms identified on immunonhistochemical stain. Negative for intestinal metaplasia. No histomorphologic evidence of lymphoma; please see comment. Negative for dysplasia or malignancy. . B-D: Gastric Antrum, Antral Scar, Body, Biopsies: Chronic active Helicobacter pylori gastritis. Rare forms morphologically consistent with Helicobacter pylori highlighted by immunohistochemistry. Negative for intestinal metaplasia. No histomorphologic evidence of lymphoma. Negative for dysplasia or malignancy. [facility] 02/10/2023 1646 Local . 01 Comment: Each gastric biopsy shows chronic active inflammation with neutrophils in the lamina propria and within glandular epithelium, as well as a lymphoplasmacytic infiltrate of the lamina propria. No definite lymphoepithelial lesions are identified. Overall, features diagnostic of marginal zone lymphoma are not seen. That said, if clinical suspicion for residual lymphoma persists, a repeat biopsy following eradication of Helicobacter organisms may be contributory. . 01 Electronically signed: . Fransisco Ruvalcaba MD, PhD, Pathologist NPI- [id number] . 01 Gross description: . Part A: PRE PYLORIC BIOPSY: Received in formalin are 2 fragment(s) of soto, soft tissue measuring 0.5 x 0.2 x 0.1 cm to 0.1 x 0.1 x 0.1 cm submitted entirely in 1 cassette(s) Part B: ANTRUM BIOPSIES: Received in formalin are 3 fragment(s) of soto, soft tissue measuring 0.3 x 0.1 x 0.1 cm to 0.3 x 0.1 x 0.1 cm submitted entirely in 1 cassette(s) Part C: ANTRUM SCAR AND NODULE: Received in formalin are 3 fragment(s) of soto, soft tissue measuring 0.5 x 0.3 x 0.3 cm to 0.2 x 0.2 x 0.1 cm submitted entirely in 1 cassette(s) Part D: GASTRIC BODY AND BIOPSIES: Received in formalin are 3 fragment(s) of soto, soft tissue measuring 0.3 x 0.1 x 0.1 cm to 0.2 x 0.1 x 0.1 cm submitted entirely in 1 cassette(s) /CPE 02/06/2023 0842 Local . 01 Microscopic: . A. An immunohistochemical stain is performed to evaluate for Helicobacter organisms, and no forms are identified. A control stain shows appropriate reactivity. . B. An immunohistochemical stain is performed to evaluate for Helicobacter organisms, and highlights rare forms morphologically consistent with Helicobacter pylori. A control stain shows appropriate reactivity. . C. An immunohistochemical stain is performed to evaluate for Helicobacter organisms, and highlights rare forms morphologically consistent with Helicobacter pylori. A control stain shows appropriate reactivity. . D. An immunohistochemical stain is performed to evaluate for Helicobacter organisms, and highlights rare forms morphologically consistent with Helicobacter pylori. A control stain shows appropriate reactivity. . * This test was developed and its performance characteristics determined by [employer]. It has not been cleared or approved by the U.S. Food and Drug Administration. The FDA has determined that such clearance or approval is not necessary. This test is used for clinical purposes. It should not be regarded as investigational or for research. . 01 Pathologist provided ICD-10: K29.70, B96.81 . 01 CPT . 175549, 622973, 338444, 091871, [id number] Specimen Comment: A courtesy copy of this report has been sent to [phone] Performed at: 01 [facility] [address] [place] [address], [place], [place] [id number] MD Prosper Bowman MD Phone: [phone]
[2023-02-05 14:01] VITALS: BP 170/84; PULSE 62; RESP 20; TEMP 36.1; O2SAT 97; BMI 41.9
[2023-02-05] MEDS: LACTATED RINGERS 1,000 ML 42 ML IV (14:10)
--- NOTE | 2023-02-05 14:35 | P.HP_ITS ---
History of Present Illness History of Present Illness Date Patient Seen: 02/05/23 Chief complaint: EGD Narrative: History of MALT lymphoma, need for follow-up. [facility] Medical History (Updated 01/30/23 @ 12:12 by Milli Liu MD) Ankle pain (~1997) Asthma (~2003) Bilateral knee pain Bilateral shoulder pain Chicken pox Chronic back pain (~2009) Depression (~2014) Gastric ulcer (~2009) GERD (gastroesophageal reflux disease) (~2007) Hyperlipidemia Hyperlipidemia Morbid obesity with body mass index of 40.0-49.9 Mumps Obstructive sleep apnea of adult (~2011) Osteoarthritis Osteoarthritis of right hip Osteoporosis (~2018) Plantar warts (~1985) Seasonal allergies Sleep apnea (~2014) Snoring Surgical History (Updated 12/05/21 @ 22:15 by Rosmery Rodríguez) Anesthesia H/O right knee surgery (~1977) History of appendectomy (~1980) Status post total hip replacement, left (~2014) Family History (Updated 12/05/21 @ 22:16 by Rosmery Rodríguez) Mother Melanoma Brother Hematologic malignancy Sister Breast cancer Asthma Social History (Updated 03/29/19 @ 14:32 by NATO Bates) marital status: unmarried,living together details: to Ángel Pelayo number of children: 0 household members: spouse lives independently: Yes caregiver/support person: No housing: house education level: college occupational status: employed Smoking Status: Never smoker alcohol intake: current substance use type: does not use (vodca everyday) Meds Home Medications and Allergies Home Medications Medication Instructions Recorded Confirmed Type Respironics Remstar CPAP #1 ea 03/25/19 01/30/23 History acetaminophen 500 mg capsule 1,000 mg PO Q6H PRN Pain (Scale 05/21/21 02/05/23 History Score 1-3) rosuvastatin 10 mg tablet 10 mg PO DAILY #90 tabs 01/28/22 02/05/23 Rx sertraline 50 mg tablet 50 mg PO DAILY #90 tabs 01/28/22 02/05/23 Rx albuterol sulfate 90 mcg/actuation 2 puff inhalation Q4H PRN 11/25/22 02/05/23 Rx aerosol inhaler Shortness Of Breath #8.5 grams montelukast 10 mg tablet 10 mg PO DAILY #90 tabs 11/25/22 02/05/23 Rx Allergies Allergy/AdvReac Type Severity Reaction Status Date / Time No Known Drug Allergies Allergy Verified 02/05/23 13:55 Exam Vital Signs (past 8 hours): - 02/05/23 14:01 Temperature 96.9 F L Pulse Rate 62 Respiratory Rate 20 Blood Pressure 170/84 H Pulse Oximetry 97 Oxygen Delivery Method Room Air Oxygen Flow Rate 0 Oxygen Delivery Method Room Air Oxygen Flow Rate 0 Narrative Exam Narrative: Oropharynx free of lesions Chest clear to auscultation percussion Cardiac exam reveals no S3 or murmur Assessment & Plan Assessment & Plan narrative: History of MALT lymphoma and need for follow-up EGD with multiple biopsies. Risks, benefits, alternatives have been explained.
--- NOTE | 2023-02-05 14:37 | P.OP.EGD_ITS ---
Operative Date/Time/Diagnoses Date of procedure: 02/05/23 Pre-op diagnosis: See indication and findings Procedure & Clinicians Study performed: EGD Indications: History of MALT lymphoma Surgeon: Wilfredo Anguiano Procedure Notes Procedure in detail: After informed consent was obtained patient was placed in left lateral decubitus position. The video upper scope placed into the oropharynx and with the patient's help swallowed into the esophagus. The esophagus stomach and duodenum were carefully examined. On withdrawal, retroflexed view the GE junction was performed. The scope was removed. The patient tolerated procedure well. Blood loss none Complications none Sedation mac Findings 1. Normal esophagus 2. Body and fundus were both fairly uniform and reasonably normal appearing. Biopsies taken 3. A central scar with somewhat radiating folds was present in the anterior wall greater curve. There was a central intensely red nodule which was biopsied along with the surrounding area which primarily appeared atrophy. 4. Adjacent areas in the antrum also appeared primarily atrophy. Several biopsi es were taken 5. Pre-pyloric area had streaky erythema contrast in with some areas of senior solutions engineer possibly atrophied mucosa. Biopsies were taken 6. Normal duodenal bulb and sweep I will review Mr. Mak's biopsies and this will determine appropriate follow- up.
[2023-02-05 15:19] VITALS: BP 154/86; PULSE 57; RESP 16; O2SAT 96
[2023-02-05 15:23] VITALS: BP 153/86; PULSE 64; RESP 12; TEMP 37.1; O2SAT 98
== END 2023-02-05 15:52 | disposition home or self-care (01) ==
PROVIDERS: PCP Family Medicine; Referring Provider Internal Medicine Gastroenterology; Visit Provider Internal Medicine Gastroenterology
PROC: 0DJ08ZZ Inspection of Upper Intestinal Tract, Via Natural or Artificial Opening Endoscopic (ICD-10-PCS; CPT 43235; principal; 2023-02-05 14:00)
DX: K29.60 Other gastritis without bleeding (principal); B96.81 Helicobacter pylori [H. pylori] as the cause of diseases classified elsewhere; Z08 Encounter for follow-up examination after completed treatment for malignant neoplasm; Z85.72 Personal history of non-Hodgkin lymphomas; K31.9 Disease of stomach and duodenum, unspecified
CPT/HCPCS: 43239; J2704

== ENCOUNTER → 2023-05-16 08:49 | Outpatient (CLI) | payer OTHER, SELFPAY ==
[2023-05-18 20:06] LABS: H. Pylori Antigen Stool Negative (Negative)
== END ==
PROVIDERS: PCP Family Medicine; Referring Provider Internal Medicine Gastroenterology; Visit Provider Internal Medicine Gastroenterology
DX: B96.81 Helicobacter pylori [H. pylori] as the cause of diseases classified elsewhere (principal)
CPT/HCPCS: 87338

== ENCOUNTER 2023-05-23 20:09 | Emergency (ER) | payer OTHER, SELFPAY ==
[2023-05-23 20:19] VITALS: BP 177/84; PULSE 115; RESP 18; TEMP 36.8; O2SAT 96; BMI 42.8
--- NOTE | 2023-05-23 20:26 | DI.RAD.S_ITS ---
PROCEDURE: XR CHEST 1V INDICATIONS: suspected sepsis TECHNIQUE: One view of the chest was acquired. COMPARISON: None. FINDINGS: Surgical changes and devices: None. Lungs and pleura: Lungs are clear. No pleural effusions or pneumothorax. Mediastinum: Mediastinal contours appear normal. Heart size is normal. Bones and chest wall: No suspicious bony lesions. Overlying soft tissues appear unremarkable. IMPRESSION: 1. No acute cardiopulmonary disease. Dictated by: Prosper Souza M.D. on 05/23/2023 at 22:00 Approved by: Prosper Souza M.D. on 05/23/2023 at 22:00
[2023-05-23] MEDS: SODIUM CHLORIDE 0.9% 1,000 ML 1000 ML IV (20:41)
[2023-05-23 20:48] LABS: Add Manual Diff / Slide Review NO; Basophils Absolute Auto 0 /uL (0-100); Basophils Percent Auto 0.5 % (0-2); Eosinophils Absolute Auto 0 /uL (0-450); Eosinophils Percent Auto 0.3 % (2-4); Hematocrit 41.2 % (41-53); Lymphocytes Absolute Auto 600 /uL (1100-4500); Lymphocytes Percent Auto 6.8 % (25-40); Mean Corpuscular Hemoglobin 30.7 PG (26-34); Mean Corpuscular Volume 90.1 fL (80-100); Monocytes Absolute Auto 900 /uL (0-900); Monocytes Percent Auto 10.2 % (3-14); Neutrophils Absolute Auto 7000 /uL (1500-7000); Neutrophils Percent Auto 82.2 % (50-75); Platelet Count 171 X10^3/uL (150-400); Red Blood Cell Count 4.57 X10^6/uL (4.5-5.9); White Blood Cell Count 8.5 X10^3/uL (4.5-11.0)
[2023-05-23 20:53] LABS: INR 1.2 (0.9-1.3); Prothrombin Time 13.9 SECONDS (10.1-12.7)
[2023-05-23 20:56] LABS: PTT Partial Thromboplastin Tim 33 SECONDS (26-36)
[2023-05-23 20:57] LABS: Lactate (Lactic Acid) 1.3 mmol/L (0.7-2.1)
[2023-05-23 20:58] LABS: Alanine Aminotransferase 29 IU/L (<50); Albumin 4.2 g/dL (3.5-5.0); Albumin Globulin Ratio 1.3 (1.0-2.8); Alkaline Phosphatase 76 U/L (38-126); Aspartate Aminotransferase 30 IU/L (17-59); Bilirubin Total 0.5 mg/dL (0.2-1.3); Blood Urea Nitrogen 12 mg/dL (9-20); Carbon Dioxide 22 mmol/L (22-32); Chloride 98 mmol/L (98-107); Estimated Glomerular Filt Rate > 60 mL/min (>60); Globulin 3.2 g/dL (1.7-4.1); Glucose 139 mg/dL (80-110); HEMOLYSIS < 15 (0-50); Lipase 44 U/L (23-300); Potassium 3.7 mmol/L (3.4-5.1); Sodium 131 mmol/L (137-145); Total Protein 7.4 g/dL (6.3-8.2)
--- NOTE | 2023-05-23 21:02 | ED.GENADULT ---
HPI - General Adult General Chief complaint: Fever Stated complaint: High fever, 103.2, Diarrhea Time Seen by Provider: 05/23/23 20:36 Source: patient Mode of arrival: Ambulatory Limitations: no limitations History of Present Illness HPI narrative: Patient is a 62-year-old male who is here for evaluation of symptoms that started yesterday. He states yesterday he started to not feel very well. Has had having some nausea. Then started to have diarrhea. His diarrhea has continued. He had a fever at home yesterday. Also had a fever today. Has been taking Tylenol. Did take some osra-nio-jigchxx medicine to try to help with his diarrhea but this did not improve anything. He did complete a course of antibiotics approximately 3 weeks ago for H pylori. He denies any urinary symptoms. No recent travel. No chest pain, shortness of breath, abdominal pain. No urinary symptoms. Related Data Home Medications Medication Instructions Recorded Confirmed Respironics Remstar CPAP #1 ea 03/25/19 04/21/23 acetaminophen 500 mg capsule 1,000 mg PO Q6H PRN Pain (Scale 05/21/21 04/21/23 Score 1-3) Previous Rx's Medication Instructions Recorded albuterol sulfate 90 mcg/actuation 2 puff inhalation Q4H PRN 02/12/23 aerosol inhaler Shortness Of Breath #8.5 grams montelukast 10 mg tablet See Rx Instructions .Route 05/12/23 .COMPLEX #90 tabs rosuvastatin 10 mg tablet See Rx Instructions .Route 05/12/23 .COMPLEX #90 tabs sertraline 50 mg tablet See Rx Instructions .Route 05/12/23 .COMPLEX #90 tabs losartan 100 mg tablet 100 mg PO DAILY #90 tabs 05/15/23 Allergies Allergy/AdvReac Type Severity Reaction Status Date / Time No Known Drug Allergies Allergy Verified 05/23/23 20:19 Review of Systems Review of Systems ROS Unobtainable: All systems reviewed & are unremarkable except as noted in HPI and below Patient History Medical History Ankle pain (~1997) Asthma (~2003) Bilateral knee pain Bilateral shoulder pain Chicken pox Chronic back pain (~2009) Depression (~2014) Gastric ulcer (~2009) GERD (gastroesophageal reflux disease) (~2007) Hyperlipidemia Hyperlipidemia Morbid obesity with body mass index of 40.0-49.9 Mumps Obstructive sleep apnea of adult (~2011) Osteoarthritis Osteoarthritis of right hip Osteoporosis (~2018) Plantar warts (~1985) Seasonal allergies Sleep apnea (~2014) Snoring Surgical History (Updated 12/05/21 @ 22:15 by Rosmery Rodríguez) Anesthesia H/O right knee surgery (~1977) History of appendectomy (~1980) Status post total hip replacement, left (~2014) Family History (Updated 12/05/21 @ 22:16 by Rosmery Rodríguez) Mother Melanoma Brother Hematologic malignancy Sister Breast cancer Asthma Social History marital status: unmarried,living together details: miah Pelayo number of children: 0 household members: spouse lives independently: Yes caregiver/support person: No housing: house education level: college occupational status: employed Smoking Status: Never smoker alcohol intake: current substance use type: does not use (vodca everyday) Smoking Status: Never smoker alcohol intake frequency: 0-2 drinks per day Substance Use Type: does not use Exam Initial Vital Signs Initial Vital Signs: Vital Signs Temperature 98.2 F 05/23/23 20:19 Pulse Rate 115 H 05/23/23 20:19 Respiratory Rate 18 05/23/23 20:19 Blood Pressure 177/84 H 05/23/23 20:19 Pulse Oximetry 96 05/23/23 20:19 Oxygen Delivery Method Room Air 05/23/23 20:19 HENMT Head: normal to inspection and normocephalic Resp Effort & Inspection: normal respiratory effort Auscultation: clear to auscultation bilaterally Cardio Rate: tachycardic Rhythm: regular rhythm GI Inspection: normal to inspection and non-distended Palpation: soft Skin Other: Diaphoretic Neuro General: patient alert, patient awake and moves all extremities Extrem General: normal to inspection and capillary refill normal Course Orders Ordered: ED Orders 05/23/23 20:26 XR chest 1V Stat RT Consult Eval and Treat NOW 05/23/23 20:36 Complete Blood Count AUTO DIFF Stat Comprehensive Metabolic Panel Stat Lactate (Lactic Acid) Stat Lipase Stat PTT Partial Thromboplastin Josh Stat Procalcitonin Stat Prothrombin Time INR Stat 05/23/23 21:00 Blood Culture Stat 05/23/23 21:05 C Diff [Clostridium Difficile Tox PCR] Stat GI Panel (Film Array) Stat 05/23/23 21:15 EKG-12 Lead Stat Discontinued Medications Sodium Chloride (Normal Saline 0.9%) 1,000 mls @ 1,000 mls/hr IV BOLUS ONE Stop: 05/23/23 21:25 Last Infusion: 05/23/23 21:47 Dose: 0 mls/hr Documented By: Admin: 05/23/23 20:41 Dose: 1,000 mls/hr Documented By: SONIA Ondansetron HCl (Ondansetron 4 Mg/2 Ml Inj) 4 mg IV NOW PRN PRN Reason: Nausea And Vomiting Ondansetron HCl (Ondansetron 4 Mg Odt) 4 mg SL NOW PRN PRN Reason: Nausea And Vomiting Vital Signs Vital signs: Vital Signs - 8 hr 05/23/23 20:19 05/23/23 22:01 05/24/23 00:09 Temperature 98.2 F 99.5 F Pulse Rate 115 H 98 H 69 Respiratory Rate 18 12 18 Blood Pressure 177/84 H 135/64 163/76 H Pulse Oximetry 96 94 98 Oxygen Delivery Method Room Air Room Air Room Air Medical Decision Making Lab Data Lab results reviewed: Yes I reviewed the patient's lab results. 05/23/23 20:36 05/23/23 20:36 Labs: Lab Results 05/23/23 05/23/23 05/23/23 Range/Units 20:36 20:36 20:36 WBC 8.5 (4.5-11.0) X10^3/uL RBC 4.57 (4.5-5.9) X10^6/uL Hgb 14.0 (13.5-17.5) g/dL Hct 41.2 (41-53) % MCV 90.1 (80-100) fL MCH 30.7 (26-34) PG MCHC 34.0 (30-36) % RDW 14.0 (11.6-14.8) % Plt Count 171 (150-400) X10^3/uL Neut % (Auto) 82.2 H (50-75) % Lymph % (Auto) 6.8 L (25-40) % [place] % (Auto) 10.2 (3-14) % Eos % (Auto) 0.3 L (2-4) % Baso % (Auto) 0.5 (0-2) % Neut # (Auto) 7000 (6131-7738) /uL Lymph # (Auto) 600 L (5036-2836) /uL [place] # (Auto) 900 (0-900) /uL Eos # (Auto) 0 (0-450) /uL Baso # (Auto) 0 (0-100) /uL PT 13.9 H (10.1-12.7) SECONDS INR 1.2 (0.9-1.3) APTT 33 (26-36) SECONDS Sodium 131 L (137-145) mmol/L Potassium 3.7 (3.4-5.1) mmol/L Chloride 98 (98-107) mmol/L Carbon Dioxide 22 (22-32) mmol/L BUN 12 (9-20) mg/dL Creatinine 0.86 (0.66-1.25) mg/dL Estimated GFR > 60 (>60) mL/min BUN/Creatinine Ratio 14.0 (6-22) Glucose 139 H (80-110) mg/dL Lactate (0.7-2.1) mmol/L Calcium 9.0 (8.4-10.2) mg/dL Total Bilirubin 0.5 (0.2-1.3) mg/dL AST 30 (17-59) IU/L ALT 29 (<50) IU/L Alkaline Phosphatase 76 (38-126) U/L Total Protein 7.4 (6.3-8.2) g/dL Albumin 4.2 (3.5-5.0) g/dL Globulin 3.2 (1.7-4.1) g/dL Albumin/Globulin Ratio 1.3 (1.0-2.8) Lipase 44 (23-300) U/L Procalcitonin 0.27 (<0.5) ng/mL Stl C. cayetanensis PCR (Not Detect) Stool Rotavirus (PCR) (Not Detect) Stool Adenovirus (PCR) (Not Detect) Stool Astrovirus (PCR) (Not Detect) Stool Cryptosporidium PCR (Not Detect) Stl E.coli Shiga Tox PCR (Not Detect) St Sh/Enteroin Ecoli PCR (Not Detect) Stool E coli O157 PCR Stl Enterotoxigenic E PCR (Not Detect) Stool EPEC (PCR) (Not Detect) Stl E. histolytica PCR (Not Detect) Stool Giardia Lamblia PCR (Not Detect) Stool Sapovirus (PCR) (Not Detect) Stl P. shigelloides PCR (Not Detect) St Y.enterocolitica PCR (Not Detect) Stool Vibrio (PCR) (Not Detect) Stl Vibrio cholerae PCR (Not Detect) Stl Enteroaggr Ecoli PCR (Not Detect) Stl Norovirus GI/GII PCR (Not Detect) Campylobacter (PCR) (Not Detect) C. difficile Tox (PCR) (Negative) Salmonella (PCR) (Not Detect) 05/23/23 05/23/23 05/23/23 Range/Units 20:36 21:05 21:05 WBC (4.5-11.0) X10^3/uL RBC (4.5-5.9) X10^6/uL Hgb (13.5-17.5) g/dL Hct (41-53) % MCV (80-100) fL MCH (26-34) PG MCHC (30-36) % RDW (11.6-14.8) % Plt Count (150-400) X10^3/uL Neut % (Auto) (50-75) % Lymph % (Auto) (25-40) % [place] % (Auto) (3-14) % Eos % (Auto) (2-4) % Baso % (Auto) (0-2) % Neut # (Auto) (8690-4026) /uL Lymph # (Auto) (6523-2771) /uL [place] # (Auto) (0-900) /uL Eos # (Auto) (0-450) /uL Baso # (Auto) (0-100) /uL PT (10.1-12.7) SECONDS INR (0.9-1.3) APTT (26-36) SECONDS Sodium (137-145) mmol/L Potassium (3.4-5.1) mmol/L Chloride (98-107) mmol/L Carbon Dioxide (22-32) mmol/L BUN (9-20) mg/dL Creatinine (0.66-1.25) mg/dL Estimated GFR (>60) mL/min BUN/Creatinine Ratio (6-22) Glucose (80-110) mg/dL Lactate 1.3 (0.7-2.1) mmol/L Calcium (8.4-10.2) mg/dL Total Bilirubin (0.2-1.3) mg/dL AST (17-59) IU/L ALT (<50) IU/L Alkaline Phosphatase (38-126) U/L Total Protein (6.3-8.2) g/dL Albumin (3.5-5.0) g/dL Globulin (1.7-4.1) g/dL Albumin/Globulin Ratio (1.0-2.8) Lipase (23-300) U/L Procalcitonin (<0.5) ng/mL Stl C. cayetanensis PCR Not detected (Not Detect) Stool Rotavirus (PCR) Not detected (Not Detect) Stool Adenovirus (PCR) Not detected (Not Detect) Stool Astrovirus (PCR) Not detected (Not Detect) Stool Cryptosporidium PCR Not detected (Not Detect) Stl E.coli Shiga Tox PCR Not detected (Not Detect) St Sh/Enteroin Ecoli PCR Not detected (Not Detect) Stool E coli O157 PCR Not Reportable Stl Enterotoxigenic E PCR Not detected (Not Detect) Stool EPEC (PCR) Not detected (Not Detect) Stl E. histolytica PCR Not detected (Not Detect) Stool Giardia Lamblia PCR Not detected (Not Detect) Stool Sapovirus (PCR) Not detected (Not Detect) Stl P. shigelloides PCR Not detected (Not Detect) St Y.enterocolitica PCR Not detected (Not Detect) Stool Vibrio (PCR) Not detected (Not Detect) Stl Vibrio cholerae PCR Not detected (Not Detect) Stl Enteroaggr Ecoli PCR Not detected (Not Detect) Stl Norovirus GI/GII PCR Not detected (Not Detect) Campylobacter (PCR) Detected H (Not Detect) C. difficile Tox (PCR) Negative for c.diff Not detected (Negative) Salmonella (PCR) Not detected (Not Detect) Urine Dip Bedside Urine Glucose Negative Bedside Urine Bilirubin - Negative Bedside Urine Ketone - Negative Urine Specific [place] 1.000 Bedside Urine Occult Blood - Negative Bedside Urine pH 6 Bedside Urine Protein - Negative Bedside Urine Urobilinogen - Negative Bedside Urine Nitrite - Negative Bedside Urine Leukocytes - Negative Esterase Point of care testing: Urine Dip Bedside Urine Glucose Negative Bedside Urine Bilirubin - Negative Bedside Urine Ketone - Negative Urine Specific [place] 1.000 Bedside Urine Occult Blood - Negative Bedside Urine pH 6 Bedside Urine Protein - Negative Bedside Urine Urobilinogen - Negative Bedside Urine Nitrite - Negative Bedside Urine Leukocytes - Negative Esterase ECG Data Attestation: I personally reviewed and interpreted this ECG as follows: Interpretation: Sinus rhythm Ventricular rate 99 Normal axis Normal QRS Normal QTC No ST T wave changes MDM Narrative Medical decision making narrative: Patient is diaphoretic and tachycardic upon arrival. His labs very reassuring. Stool study show Campylobacter. No signs of C diff. After fluids here in the ER patient states he was feeling much better. He has been afebrile. No indication for antibiotics for the Campylobacter. He is not immunocompromised. I did discuss the positive result with him. Discussed that he could continue to have some diarrhea over the next day or so. He will increase his fluid intake. He was given return precautions. He expressed understanding and agreement. Discharge Plan Departure Patient Disposition: Home Clinical Impression: Fever, Campylobacter diarrhea Instructions: Diarrhea (Alternative Therapy) Activity Restrictions/Additional Instructions: The stool sample is positive for Campylobacter. This is a self limiting infection that does not normally require antibiotics. Be sure that you are increasing your fluid intake. Return to the emergency department for new or worsening symptoms. Prescriptions: No Action albuterol sulfate 90 mcg/actuation HFA aerosol inhaler 2 puff INHALATION Q4H PRN (Reason: Shortness Of Breath) Qty: 8.5 0RF sertraline 50 mg tablet See Rx Instructions .ROUTE .COMPLEX Qty: 90 0RF Dose Instruction: TAKE ONE TABLET BY MOUTH DAILY MUST CALL MD FOR APPOINTMENT Rx Instructions: TAKE ONE TABLET BY MOUTH DAILY MUST CALL MD FOR APPOINTMENT montelukast 10 mg tablet See Rx Instructions .ROUTE .COMPLEX Qty: 90 0RF Dose Instruction: TAKE ONE TABLET BY MOUTH DAILY Rx Instructions: TAKE ONE TABLET BY MOUTH DAILY rosuvastatin 10 mg tablet See Rx Instructions .ROUTE .COMPLEX Qty: 90 0RF Dose Instruction: TAKE ONE TABLET BY MOUTH DAILY Rx Instructions: TAKE ONE TABLET BY MOUTH DAILY losartan 100 mg tablet 100 mg PO DAILY Qty: 90 0RF acetaminophen 500 mg Capsule 1,000 mg PO Q6H PRN (Reason: Pain (Scale Score 1-3)) (DME) Respironics Remstar CPAP Qty: 1 Dose Instruction: As directed Patient Comments: Pressure: 6-12 cmH2O DME: [facility] Rx Instructions: As directed Referrals: Bernardino Goff MD [Primary Care Provider] - Stand Alone Forms: Patient Portal/API
[2023-05-23 21:14] LABS: Procalcitonin 0.27 ng/mL (<0.5)
[2023-05-23 22:01] VITALS: BP 135/64; PULSE 98; RESP 12; TEMP 37.5; O2SAT 94
[2023-05-23 22:06] LABS: Clostridium Difficile Tox PCR Negative for C.diff (Negative)
[2023-05-23 23:53] LABS: Campylobacter Detected (Not Detect)
[2023-05-23 23:54] LABS: Adenovirus F 40/41 Not Detected (Not Detect); Astrovirus Not Detected (Not Detect); Clostridium difficile toxin AB Not Detected (Not Detect); Cryptosporidium Not Detected (Not Detect); Cyclospora cayetanensis Not Detected (Not Detect); Entamoeba histolytica Not Detected (Not Detect); Enteroaggregative E.coli Not Detected (Not Detect); Enteropathogenic E.coli Not Detected (Not Detect); Enterotoxigenic E.coli It/st Not Detected (Not Detect); Giardia lamblia Not Detected (Not Detect); Norovirus GI/GII Not Detected (Not Detect); Plesiomonsa shigelloides Not Detected (Not Detect); Rotavirus A Not Detected (Not Detect); Salmonella Not Detected (Not Detect); Sapovirus Not Detected (Not Detect); Shiga-like toxin-prod E.coli Not Detected (Not Detect); Shigella/Enteroinvasive E.coli Not Detected (Not Detect); Vibrio Not Detected (Not Detect); Vibrio cholerae Not Detected (Not Detect); Yersinia enterocolitica Not Detected (Not Detect)
[2023-05-24 00:09] VITALS: BP 163/76; PULSE 69; RESP 18; O2SAT 98
== END 2023-05-24 00:10 | disposition home or self-care (01) ==
PROVIDERS: Emergency Provider Emergency Medicine; PCP Family Medicine
DX: A04.5 Campylobacter enteritis (principal); R50.9 Fever, unspecified; R10.9 Unspecified abdominal pain
CPT/HCPCS: 36415; 71045; 80053; 81003; 83605; 83690; 84145; 85025; 85610; 85730; 87040; 87493; 87507; 93005; 96360; 99284

== ENCOUNTER → 2023-05-26 13:50 | Outpatient (CLI) | payer OTHER, SELFPAY ==
--- NOTE | 2023-05-26 13:52 | DI.ECHO.S_ITS ---
[facility]---------[facility] +---------+ : : [address] : : : : [id number] : : : : Phone: [phone]+ Echocardiogram Report + + :Name: FERN HARRELL Study Date: 05/26/2023 Height: 73 in : :[facility] ReadingLocation: Weight: 316 lb : : Gender: Male BSA: 2.6 m2 : :: 1960 Age: 62 yrs BP: 153/82 mmHg: :Reason For Study: EXERTIONAL DYSPNEA, HYPERTENSION : :Ordering Physician: ELIZABETH, : :MONTY Performed By: Cherry Morris : :Referring: MONTY JOHNSON : + + Interpretation Summary 1) Normal left ventricular size, wall motion, and systolic function (EF 60- 65%). 2) Normal right ventricular size and function. 3) No significant valvular abnormalities. 4) No prior Echo available for comparison. Procedure: The study quality was technically limited. The study quality was technically adequate. There is no prior echocardiogram noted for this patient. The patient was in sinus bradycardia with heart rates between 52-57 bpm during the exam. Left Ventricle: The left ventricle is normal in size. Left ventricular wall thickness is at the upper limits of normal. The ejection fraction is estimated to be 60-65%. Left ventricular systolic function appears normal without focal wall motion abnormalities. Right Ventricle: The right ventricle is normal in size and function. Atria: The left atrial size is normal. Right atrial size is normal. Mitral Valve: The mitral valve is grossly normal. There is no mitral regurgitation noted. Aortic Valve: The aortic valve is trileaflet. The aortic valve opens well. There is no aortic valve stenosis. No aortic regurgitation is present. Tricuspid Valve: The tricuspid valve is not well visualized, but is grossly normal. There is a trace or physiologic amount of tricuspid regurgitation. Pulmonary artery pressures cannot be estimated because of the lack of a measurable TR jet velocity. Great Vessels: The IVC is of normal diameter and collapses greater than 50% with a sniff. This suggests a low right atrial pressure of 3 mm Hg. Pericardium/ Pleura There is no pericardial effusion. There is no pleural effusion. MMode/2D Measurements & Calculations LVIDd: 5.4 cm LVOT diam: 2.0 cm LVIDs: 3.4 cm FS: 36.3 % EPSS: 0.85 cm IVSd: 1.1 cm LVPWd: 0.88 cm LV heller. diameter/BSA (cm/m^2): 2.1 LV sys. diameter/BSA (cm/m^2): 1.3 LA A2 area: 25.6 cm2 RA long axis: 6.3 cm LA A4 area: 20.5 cm2 RA area: 20.1 cm2 LA length (vol): 5.7 cm RA vol: 54.8 ml LA vol: 78.3 ml RA : 21.0 ml/m2 LA vol index: 29.9 ml/m2 IVC diam: 1.4 cm Doppler Measurements & Calculations Ao V2 max: 166.5 cm/sec LVOT Max [place]: 101.5 cm/sec Ao V2 mean: 119.7 cm/sec LV V1 max P.1 mmHg Ao max P.1 mmHg LV V1 VTI: 22.2 cm Ao mean P.3 mmHg WHITNEY(I,D): 1.9 cm2 Ao V2 VTI: 37.4 cm WHITNEY(V,D): 2.0 cm2 sev ratio: 0.59 WHITNEY indexed to BSA (cm^2/m^2): 0.74 SV(LVOT): 72.6 ml Reading Physician:03:59 PM
== END ==
PROVIDERS: PCP Family Medicine; Referring Provider Family Medicine; Visit Provider Family Medicine
DX: R06.09 Other forms of dyspnea (principal); R03.0 Elevated blood-pressure reading, without diagnosis of hypertension
CPT/HCPCS: 93307

== ENCOUNTER → 2023-06-02 12:21 | Outpatient (CLI) | payer OTHER, SELFPAY ==
--- NOTE | 2023-06-02 12:22 | DI.NM.S_ITS ---
PROCEDURE: NM LISSETTE PERF SPECT REST & STR Rest and exercise myocardial perfusion SPECT with gated imaging and ejection fraction RADIOPHARMACEUTICAL: 25.4 mCi Tc-99m sestamibi IV at rest and 26.9 mCi Tc-99m sestamibi IV at peak exercise. A two day-protocol was performed. INDICATIONS: exertional shortness of breath TECHNIQUE: Radiopharmaceutical was injected at peak stress test, and also at rest. SPECT images were obtained. SPECT myocardial perfusion images were displayed in short axis, horizontal long axis, and vertical long axis views. Gated images were reviewed using [employer] software. COMPARISON: None. CARDIAC STRESS: A standard [place] treadmill exercise tolerance test was performed by the patient under the supervision of an attending staff. The patient exercised for 6 minutes and 50 seconds; functional aerobic impairment (CAESAR) is +13%. Hemodynamic data: There is normal heart rate response to exercise stress. Hypertensive response to exercise (resting BP 130/75mmHg, max BP 220/60mmHg). Patient achieved 99% of maximum predicted heart rate at peak exercise. Symptoms: Patient denied chest pain during exercise. EKG: No diagnostic EKG changes of ischemia; no ectopy. FINDINGS: Raw data: There is good myocardial labeling by radiotracer. No significant motion artifacts. Left ventricle function: Gated images demonstrate normal left ventricle wall thickening. No segmental wall motion abnormality. No transient ischemic dilation; TID is 0.92 (normal less than 1.3). The left ventricle resting end-diastolic volume is 148 mL. Left ventricle stress ejection fraction is 70%; normal values are above 45%. Myocardial perfusion: There is normal distribution of activity in the left and right ventricular myocardium. No fixed or reversible perfusion defects. IMPRESSION: Low risk, normal treadmill nuclear stress test 1) No perfusion evidence of ischemia or infarction. 2) Enlarged left ventricle (LVEDD 148cc at rest) with normal wall motion, and normal systolic function (EF post rest 70%). 3) No ST changes during exercise or recovery. 4) No angina during the study. 5) Mildly reduced exercise tolerance (10.1METs, CAESAR +13%). 99% of maximum predicted heart rate achieved. 6) Hypertensive response to exercise (resting BP 130/75mmHg, max BP 220/60mmHg). 7) No prior nuclear stress test available for comparison. Dictated by: Tierra Perea MD on 06/05/2023 at 13:45 Approved by: Tierra Perea MD on 06/05/2023 at 13:49
== END ==
PROVIDERS: PCP Family Medicine; Referring Provider Family Medicine; Visit Provider Family Medicine
DX: R06.09 Other forms of dyspnea (principal); R03.0 Elevated blood-pressure reading, without diagnosis of hypertension; R06.02 Shortness of breath
CPT/HCPCS: 78452; 93017; A9502

== ENCOUNTER → 2023-10-16 12:07 | Outpatient (CLI) | payer OTHER, SELFPAY ==
[2023-10-19 20:17] LABS: H. Pylori Antigen Stool Negative (Negative)
== END ==
PROVIDERS: PCP Family Medicine; Referring Provider Internal Medicine Gastroenterology; Visit Provider Internal Medicine Gastroenterology
DX: K29.70 Gastritis, unspecified, without bleeding (principal)
CPT/HCPCS: 87338

== ENCOUNTER → 2023-12-18 06:44 | Outpatient (CLI) | payer OTHER, SELFPAY ==
[2023-12-18 08:05] LABS: Add Manual Diff / Slide Review NO; Basophils Absolute Auto 100 /uL (0-100); Basophils Percent Auto 1.1 % (0-2); Eosinophils Absolute Auto 600 /uL (0-450); Eosinophils Percent Auto 9.2 % (2-4); Hematocrit 42.8 % (41-53); Hemoglobin 14.5 g/dL (13.5-17.5); Lymphocytes Absolute Auto 1400 /uL (1100-4500); Lymphocytes Percent Auto 20.9 % (25-40); Mean Corpuscular HGB Conc 33.8 % (30-36); Mean Corpuscular Hemoglobin 30.8 PG (26-34); Mean Corpuscular Volume 91.2 fL (80-100); Monocytes Absolute Auto 600 /uL (0-900); Monocytes Percent Auto 9.8 % (3-14); Neutrophils Absolute Auto 3900 /uL (1500-7000); Platelet Count 237 X10^3/uL (150-400); White Blood Cell Count 6.5 X10^3/uL (4.5-11.0)
[2023-12-18 08:20] LABS: Hemoglobin A1C% w Est Avg Glu 5.6 % (4.0-6.0)
[2023-12-18 08:24] LABS: Alanine Aminotransferase 38 IU/L (<50); Albumin 4.4 g/dL (3.5-5.0); Albumin Globulin Ratio 1.5 (1.0-2.8); Alkaline Phosphatase 60 U/L (38-126); Aspartate Aminotransferase 45 IU/L (17-59); BUN Creatinine Ratio 16.4 (6-22); Bilirubin Total 0.8 mg/dL (0.2-1.3); Blood Urea Nitrogen 12 mg/dL (9-20); Calcium 9.5 mg/dL (8.4-10.2); Carbon Dioxide 25 mmol/L (22-32); Chloride 103 mmol/L (98-107); Cholesterol 153 mg/dL (140-199); Estimated Glomerular Filt Rate > 60 mL/min (>60); Globulin 2.9 g/dL (1.7-4.1); Glucose 103 mg/dL (80-110); HDL Cholesterol 46 mg/dL (40-60); HEMOLYSIS < 15 (0-50); LDL Cholesterol Calculated 82 mg/dL (<100); Potassium 3.9 mmol/L (3.4-5.1); Sodium 136 mmol/L (137-145); Total Protein 7.3 g/dL (6.3-8.2); Triglycerides 124 mg/dL (35-150)
[2023-12-18 08:52] LABS: Prostate Specific Antigen Scrn 2.15 ng/mL (0.1-4.0)
[2023-12-18 08:53] LABS: Thyroid Stimulating Hormone 1.54 uIU/mL (0.47-4.68)
[2023-12-19 08:42] LABS: Apolipoprotein B 78 mg/dL (<90)
== END ==
PROVIDERS: PCP Family Medicine; Referring Provider Naturopath; Visit Provider Naturopath
DX: Z00.00 Encounter for general adult medical examination without abnormal findings (principal); E11.9 Type 2 diabetes mellitus without complications; R53.83 Other fatigue; E78.5 Hyperlipidemia, unspecified; M16.11 Unilateral primary osteoarthritis, right hip; M54.9 Dorsalgia, unspecified; G89.29 Other chronic pain; C88.4 Extranodal marginal zone B-cell lymphoma of mucosa-associated lymphoid tissue [MALT-lymphoma]; R06.09 Other forms of dyspnea; Z12.5 Encounter for screening for malignant neoplasm of prostate; I10 Essential (primary) hypertension
CPT/HCPCS: 36415; 80053; 80061; 82172; 83036; 83695; 84443; 85025; G0103

== ENCOUNTER → 2024-07-27 13:38 | Outpatient (CLI) | payer OTHER, SELFPAY | PROVIDERS: PCP Family Medicine; Referring Provider Internal Medicine; Visit Provider Internal Medicine | DX: J45.909 Unspecified asthma, uncomplicated (principal); R94.2 Abnormal results of pulmonary function studies | CPT/HCPCS: 94060; 94726; 94729 ==